=== PATIENT | female | born 1975 | race Hispanic/Latino ===

== ENCOUNTER 2019-05-08 15:20 | Emergency (ER) | payer MEDICAID, OTHER ==
[2019-05-08] MEDS ORDERED: ASPIRIN 325 MG TABLET ONE (15:35)
[2019-05-08 15:39] LABS: BASOPHILS % (AUTO) 0.2 % (0.0-5.0); EOSINOPHILS % (AUTO) 0.4 % (0.0-8.0); HEMATOCRIT 38.1 % (36-48); LYMPHOCYTES % (AUTO) 17.7 % (21.0-51.0); MEAN CORPUSCULAR HGB CONC 33.3 g/dL (32.0-36.0); MONOCYTES % (AUTO) 9.8 % (3.0-13.0); NEUTROPHILS % (AUTO) 71.1 % (40.0-77.0); PLATELET COUNT (AUTO) 200 K/uL (130-400); RED BLOOD CELL COUNT(AUTO) 4.38 MIL/uL (4.00-5.50); RED CELL DISTRIBUTION WIDTH 12.7 % (11.0-15.5); WHITE BLOOD COUNT (AUTO) 5.2 K/uL (4.8-10.8)
[2019-05-08 15:54] LABS: INR 0.99 (0.85-1.15); PARTIAL THROMBOPLASTIN TIME 24.3 SEC (26.3-35.5); PROTHROMBIN TIME 10.4 SEC (9.6-11.6)
[2019-05-08 16:00] LABS: CREATININE 0.9 mg/dL (0.5-1.5); POTASSIUM 3.3 mmol/L (3.5-5.1)
[2019-05-08 16:05] LABS: ALBUMIN 3.4 g/dL (3.5-5.0); BILIRUBIN,TOTAL 0.3 mg/dL (0.2-1.0); TOTAL PROTEIN, SERUM 7.4 g/dL (6.0-8.3)
[2019-05-08] MEDS ORDERED: SODIUM CHLORIDE 0.9% 1000ML 1,000 ML IV ONE (16:49)
[2019-05-08] MEDS ORDERED: LIDOCAINE HCL 2% VISCOUS 15 ML UDCUP ONE (16:51)
[2019-05-08] MEDS ORDERED: MAGNESIUM HYDROXIDE 30 ML/UDCUP ONE (16:51)
[2019-05-08] MEDS ORDERED: ONDANSETRON HCL 4 MG/2 ML VIAL ONE (16:51)
== END 2019-05-08 17:43 | disposition home or self-care (01) ==
LOC: EDH 15:20
DX: K52.9 Noninfective gastroenteritis and colitis, unspecified (principal); R07.89 Other chest pain; Z72.0 Tobacco use
CPT/HCPCS: 36415; 71045; 80053; 82550; 84484; 85025; 85610; 85730; 93005; 96361; 96374; 99285; J2405; J7030

== ENCOUNTER 2024-07-01 19:28 | Emergency (ER) | payer SELFPAY ==
[~2024-07-01] VITALS: Ht 154.9 cm; Wt 74.8 kg
--- NOTE | 2024-07-01 19:55 | ERN ---
General Chief Complaint: Abdominal Pain Stated Complaint: ABD PAIN Time Seen by MD: 19:32 Source: patient History of Present Illness Initial Comments Patient is a healthy 49-year-old female who comes to the emergency room because she had subxiphoid pain that almost made her pass out. She says it is better now but still there. No associated symptoms. No visual changes no mental status changes no chest pain no dyspepsia no change in urination no fevers no chills. Timing/Duration: 4-6 hours Allergies: Coded Allergies: No Known Drug Allergies (Unverified Allergy, Unknown, 07/01/24) Past Medical History Past Medical History: No Pertinent History Past Surgical History: None Constitutional: (-) chills, (-) diaphoresis, (-) fever, (-) malaise, (-) weakness, (-) other documentation EENTM: (-) eye pain, (-) blurred vision, (-) tearing, (-) double vision, (-) ear pain, (-) ear discharge, (-) nose pain, (-) nose congestion, (-) throat pain, (-) Throat swelling, (-) mouth pain, (-) tooth pain, (-) mouth swelling, (-) other documentation Respiratory: (-) cough, (-) orthopnea, (-) short of breath, (-) stridor, (-) wheezing, (-) other documentation Cardiovascular: (-) chest pain, (-) edema, (-) palpitations, (-) syncope, (-) dyspnea on exertion, (-) other documentation Gastrointestinal/Abdominal: (-) nausea, (-) vomiting, (-) diarrhea, (-) abdominal pain, (-) abdominal distention, (-) constipation, (-) rectal bleeding, (-) dark stool/melena, (-) other documentation Musculoskeletal: (-) Neck pain, (-) back pain, (-) Flank Pain, (-) joint pain, (-) joint swelling, (-) muscle pain, (-) muscle stiffness, (-) gout, (-) other documentation Skin: (-) laceration, (-) contusion, (-) abrasion, (-) abscess, (-) rash, (-) change in color, (-) change in hair, (-) change in nails, (-) diaphoresis, (-) dryness, (-) other documentation Neuro: (-) altered mental status, (-) headache, (-) syncope, (-) paralysis, (-) numbness, (-) seizure, (-) pre-existing deficit, (-) tremors, (-) weakness, (-) dizziness, (-) slurred speech, (-) vertigo, (-) other documentation Physical Exam General Appearance: (+) no apparent distress Orientation: (+) alert, (+) oriented x 3 Head/Face Trauma: No Eye: bilateral eye normal inspection, bilateral eye PERRL, bilateral eye EOMI Ear, Nose, Throat: (+) hearing grossly normal, (+) normal ENT inspection, (+) moist mucous membraine, (+) normal pharynx Neck: (+) normal inspection, (+) supple Respiratory: (+) chest non-tender, (+) lungs clear, (+) well ventilated Heart: (+) regular, (+) no gallop Vascular: (+) no edema, (+) normal peripheral pulse, (+) no JVD Gastrointestinal: (+) soft, (+) non-tender, (+) bowel sound present Results Laboratory and Microbiology Lab and Micro Result Laboratory Tests Test 07/01/24 20:00 07/01/24 20:17 White Blood Count 6.9 K/uL (4.8-10.8) Red Blood Count 4.38 MIL/uL (4.00-5.50) Hemoglobin 11.6 g/dL (12.0-16.0) L Hematocrit 36.4 % (36-48) Mean Corpuscular Volume 83.1 fL (79-99) Mean Corpuscular Hemoglobin 26.5 pg (27.0-33.0) L Mean Corpuscular Hemoglobin Concent 31.9 g/dL (32.0-36.0) L Red Cell Distribution Width 14.4 % (11.0-15.5) Platelet Count 260 K/uL (130-400) Mean Platelet Volume 11.2 fL (7.5-10.5) H Immature Granulocyte % (Auto) 0.4 % (0-1) Neutrophils (%) (Auto) 51.3 % (40.0-77.0) Lymphocytes (%) (Auto) 38.3 % (21.0-51.0) Monocytes (%) (Auto) 8.3 % (3.0-13.0) Eosinophils (%) (Auto) 1.6 % (0.0-8.0) Basophils (%) (Auto) 0.1 % (0.0-5.0) Neutrophils # (Auto) 3.5 K/uL (1.8-7.7) Lymphocytes # (Auto) 2.6 K/uL (1.0-4.8) Monocytes # (Auto) 0.6 K/uL (0.1-1.0) Eosinophils # (Auto) 0.11 K/uL (0.00-0.70) Basophils # (Auto) 0.01 K/uL (0.00-0.20) Absolute Immature Granulocyte (auto 0.03 K/uL (0-1) Nucleated Red Blood Cells 0.0 % (0.0-0.19) Sodium Level 140 mmol/L (136-145) Potassium Level 3.5 mmol/L (3.5-5.1) Chloride Level 102 mmol/L (101-111) Carbon Dioxide Level 29 mmol/L (21-32) Blood Urea Nitrogen 11 mg/dL (7-18) Creatinine 1.0 mg/dL (0.5-1.0) Glomerular Filtration Rate Calc 69 mL/min (>90) Random Glucose 172 mg/dL (70-105) H Total Calcium 8.5 mg/dL (8.5-10.1) Troponin I High Sensitivity < 4 ng/L (4-50) L Urine Color LIGHT-YELLOW (YELLOW) Urine Appearance CLEAR (CLEAR) Urine pH 6.0 (5.0-8.0) Urine Specific [place] 1.019 (1.001-1.031) Urine Protein 10 mg/dL (NEGATIVE) H Urine Glucose (UA) NEGATIVE mg/dL (NEGATIVE) Urine Ketones NEGATIVE mg/dL (NEGATIVE) Urine Occult Blood SMALL (NEGATIVE) H Urine Nitrate NEGATIVE (NEGATIVE) Urine Bilirubin NEGATIVE mg/dL (NEGATIVE) Urine Urobilinogen 0.2 mg/dL (0.2-1.0) Urine Leukocyte Esterase 75 Cipriano/uL (NEGATIVE) H Urine RBC 2-5 /HPF (0-1) H Urine WBC 6-10 /HPF (0-1) H Urine Squamous Epithelial Cells RARE /HPF (0-2) Urine Bacteria FEW /HPF (None Seen) Urine Yeast RARE /HPF (None Seen) MDM Patient with resolving subxiphoid chest pain. Physical exam is benign, no no abdominal tenderness bowel sounds present. EKG shows possible left atrial enlargement no ST changes. Patient reports no change in urination or defecation. I will do standard labs and give her some fluids. Patient feels dramatically improved with a GI cocktail in the fluids. She still has some high blood pressure and her left atrium is possibly enlarged based on EKG so she may have chronic hypertension. I will send the patient home with the instructions to take Pepcid and also to follow up with her primary care physician regarding her hypertension +her GERD ED Course Orders Procedure Category Date Status Time Vital Signs Per CPOE 07/01/24 Transmitted Routine 19:57 Saline Lock Iv CPOE 07/01/24 Transmitted 19:57 Cbc With Differential LAB 07/01/24 Complete 19:57 Urinalysis Profile LAB 07/01/24 Complete 19:57 Basic Metabolic Panel LAB 07/01/24 Complete 19:57 12 Lead Ekg Tracing- EKG 07/01/24 Logged Technical 19:58 Troponin I High LAB 07/01/24 Complete Sensitivity 19:58 Lactated Ringers PHA 07/01/24 Complete 1000ml (Lactated 20:30 Lidocaine Hcl 2% PHA 07/01/24 Complete Viscous (Lidocaine Hcl 20:30 Mag/Alum/Simeth 30ml PHA 07/01/24 Complete (Maalox Plus 30ml) 20:30 Dicyclomine Hcl PHA 07/01/24 Complete (Bentyl 10mg/5ml 20:30 Culture Urine ANGIE 07/01/24 In Process 20:30 Ketorolac PHA 07/01/24 Complete Tromethamine 30mg/Ml 21:30 Current Medications Medications (Trade) Dose Ordered Sig/Ted Route PRN Reason Start Time Stop Time Status Last Admin Dose Admin Al Hydroxide/Mg Hydroxide (MAALox PLUS 30ML) 30 ml ONCE ONCE PO 07/01/24 20:30 07/01/24 20:31 DC 07/01/24 20:28 Dicyclomine HCl (Bentyl 10mg/5ml Syrup) 10 mg ONCE ONCE PO 07/01/24 20:30 07/01/24 20:31 DC 07/01/24 20:28 Ketorolac Tromethamine (toRADol) 30 mg ONCE ONCE IVP 07/01/24 21:30 07/01/24 21:31 DC 07/01/24 21:36 Lactated Ringer's (Lactated Ringers 1000ml) 1,000 ml BOLUS ONCE IV 07/01/24 20:30 07/01/24 20:31 DC 07/01/24 20:28 Lidocaine HCl (Lidocaine HCl 2% Viscous) 10 ml ONCE ONCE PO 07/01/24 20:30 07/01/24 20:31 DC 07/01/24 20:28 Vital Signs Date Time Temp Pulse Resp B/P (MAP) Pulse Ox O2 Delivery O2 Flow Rate FiO2 07/01/24 21:57 75 18 173/90 99 Room Air* 0 21 07/01/24 21:05 78 18 156/93 100 Room Air* 0 21 07/01/24 19:59 97.9 75 18 173/94 99 Room Air* 0 21 07/01/24 19:31 97.0 75 20 170/112 100 Room Air DX & DISP Disposition: Discharge Departure Impression: Primary Impression: GERD (gastroesophageal reflux disease) Condition: Stable Additional Instructions: Please see your primary care doctor about your GERD. He needs to do a test for H pylori. In addition your blood pressure is elevated during this emergency room visit and so you should talked to him about that as well. I recommend starting with Pepcid twice a day. Referrals: SELF,REFERRAL (PCP) LENNY LANDRY MD Jul 01, 2024 19:55
[2024-07-01 20:07] LABS: BASOPHILS # (AUTO) 0.01 K/uL (0.00-0.20); BASOPHILS % (AUTO) 0.1 % (0.0-5.0); EOSINOPHILS # (AUTO) 0.11 K/uL (0.00-0.70); EOSINOPHILS % (AUTO) 1.6 % (0.0-8.0); HEMATOCRIT 36.4 % (36-48); IMMATURE GRANULOCYTE ABSOLUTE 0.03 K/uL (0-1); LYMPHOCYTES # (AUTO) 2.6 K/uL (1.0-4.8); LYMPHOCYTES % (AUTO) 38.3 % (21.0-51.0); MEAN CORPUSCULAR HEMOGLOBIN 26.5 pg (27.0-33.0); MEAN CORPUSCULAR HGB CONC 31.9 g/dL (32.0-36.0); MEAN CORPUSCULAR VOLUME 83.1 fL (79-99); MONOCYTES # (AUTO) 0.6 K/uL (0.1-1.0); MONOCYTES % (AUTO) 8.3 % (3.0-13.0); NEUTROPHILS # (AUTO) 3.5 K/uL (1.8-7.7); NEUTROPHILS % (AUTO) 51.3 % (40.0-77.0); PLATELET COUNT (AUTO) 260 K/uL (130-400); RED BLOOD CELL COUNT(AUTO) 4.38 MIL/uL (4.00-5.50); RED CELL DISTRIBUTION WIDTH 14.4 % (11.0-15.5); WHITE BLOOD COUNT (AUTO) 6.9 K/uL (4.8-10.8)
[2024-07-01 20:27] LABS: POTASSIUM 3.5 mmol/L (3.5-5.1)
[2024-07-01] MEDS: MAG/ALUM/SIMETH 30 ML UDCUP PO ONE (20:28)
[2024-07-01] MEDS: LACTATED RINGERS 1000ML IV ONE (20:28)
[2024-07-01] MEDS: DICYCLOMINE HCL 10 MG/5 ML ML PO ONE (20:28)
[2024-07-01] MEDS: LIDOCAINE HCL 2% VISCOUS 15 ML UDCUP PO ONE (20:28)
[2024-07-01 20:29] LABS: ADD UA MICROSCOPIC YES; APPEARANCE,URINE CLEAR (CLEAR); BILIRUBIN,URINE NEGATIVE (NEGATIVE); COLOR,URINE LIGHT-YELLOW (YELLOW); GLUCOSE, URINE (UA) NEGATIVE (NEGATIVE); KETONES,URINE NEGATIVE (NEGATIVE); LEUKOCYTE ESTERASE ,URINE 75 Leu/uL (NEGATIVE); NITRATE,URINE NEGATIVE (NEGATIVE); OCCULT BLOOD,URINE SMALL (NEGATIVE); PROTEIN,URINE 10 mg/dL (NEGATIVE); UROBILINOGEN,URINE 0.2 mg/dL (0.2-1.0)
[2024-07-01 20:32] LABS: BACTERIA,URINE FEW /HPF (None Seen); MUCUS,URINE RARE LPF (None Seen); SQUAMOUS EPITHELIAL CELL,UR RARE /HPF (0-2); YEAST,URINE BUDDING RARE /HPF (None Seen)
[2024-07-01] MEDS: ketOROlac 30MG VIAL (30MG/ML) IVP ONE (21:36)
[2024-07-01 22:45] VITALS: BP 160/90; PULSE 72; RESP 18; TEMP 98; O2SAT 100
--- NOTE | 2024-07-02 11:58 | EKG ---
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
== END 2024-07-01 22:47 | disposition home or self-care (01) ==
LOC: EDH 19:28
DX: K21.9 Gastro-esophageal reflux disease without esophagitis (principal)
CPT/HCPCS: 99285; 96374; 96361; 84484; 80048; 85025; 87086; 81001; 36415; 93005; J1885; J7120